=== PATIENT | male | born 1950 | race Two or more races ===

== ENCOUNTER 2022-09-08 12:04 | Inpatient (IN) | payer BC, OTHER ==
[~2022-09-08] VITALS: Ht 165.1 cm; Wt 118.0 kg
[2022-09-08] MEDS ORDERED: methylPREDNISolone SOD SUCC 125 MG/2 ML VL IV ONE (12:15)
[2022-09-08 12:53] LABS: Basophils # (auto) 0 10 ^3/uL (0-0.2); Basophils % (auto) 0.6 % (0.0-2.0); Eosinophils # (auto) 0.1 10 ^3/uL (0-0.8); Eosinophils % (auto) 1.9 % (0.0-7.0); Hematocrit 31.1 % (41.0-53.0); Lymphocytes # (auto) 1.2 10 ^3/uL (0.4-5.4); Lymphocytes % (auto) 24.6 % (10.0-50.0); Mean Corpuscular Hgb Conc. 35.2 g/dL (32.0-36.0); Mean Corpuscular Volume 90.7 fL (80.0-100.0); Monocytes # (auto) 0.5 10 ^3/uL (0-1.3); Monocytes % (auto) 10.8 % (0.0-12.0); Neutrophils % (auto) 62.1 % (37.0-80.0); Nucleated Red Blood Cells % 0.1 %; Red Blood Cells 3.43 10^6/uL (4.5-5.90); Red Cell Distribution Width 12.2 % (11.8-14.3); White Blood Cell 4.8 10^3/uL (4.4-10.8)
[2022-09-08 13:14] LABS: Potassium 3.7 mmol/L (3.5-5.1)
[2022-09-08 13:33] LABS: Albumin 3.7 g/dL (3.4-5.0); BUN/Creatinine Ratio 9.4; Calcium 8.7 mg/dL (8.5-10.1); Magnesium 1.6 mg/dL (1.6-2.6); Total Protein 6.6 g/dL (6.4-8.2)
[2022-09-08] MEDS ORDERED: AZITHROMYCIN 500MG/ 250ML 250 ML IV ONE (15:45)
[2022-09-08] MEDS ORDERED: IOHEXOL 350 MG/ML 100ML IJ ONE (15:56)
[2022-09-08 18:35] LABS: Urine Bacteria NONE SEEN /hpf (None Seen); Urine Blood Negative /uL (Negative); Urine Specific Gravity 1.011 (1.001-1.035); Urine WBC <1 /hpf (0 - 3)
[2022-09-08] MEDS ORDERED: HYDROcodone-ACET 5/325MG TAB PO PRN (20:45)
[2022-09-08] MEDS ORDERED: DOCUSATE SOD 100 MG CAP PO PRN (20:45)
[2022-09-08] MEDS ORDERED: MORPHINE SULFATE INJ 2 MG/ml SYRG IV PRN (20:45)
[2022-09-08] MEDS ORDERED: ACETAMINOPHEN 325 MG TAB PO PRN (20:45)
[2022-09-08] MEDS ORDERED: ONDANSETRON HCL 4 MG/2 ML VIAL IV PRN (20:45)
[2022-09-08] MEDS: SODIUM CHLORIDE 0.9% 1,000 ML IV SCH (21:33)
[2022-09-09 07:07] LABS: BUN/Creatinine Ratio 15.2; Calcium 9.1 mg/dL (8.5-10.1); Potassium 3.5 mmol/L (3.5-5.1)
[2022-09-09] MEDS ORDERED: HEPARIN DRIP/D5W 100UNITS/ML 250 ML IV SCH (07:45)
[2022-09-09] MEDS ORDERED: HEPARIN SODIUM (PORCINE) 5000 UNITS/ML 1ML VIAL IV ONE (07:45)
[2022-09-09 08:08] LABS: Basophils # (auto) 0 10 ^3/uL (0-0.2); Basophils % (auto) 0.1 % (0.0-2.0); Eosinophils # (auto) 0 10 ^3/uL (0-0.8); Hematocrit 32.5 % (41.0-53.0); Hemoglobin 11.8 g/dL (13.5-17.5); Lymphocytes # (auto) 0.6 10 ^3/uL (0.4-5.4); Lymphocytes % (auto) 12.5 % (10.0-50.0); Mean Corpuscular Hemoglobin 32.7 pg (28.0-32.0); Mean Corpuscular Hgb Conc. 36.4 g/dL (32.0-36.0); Mean Corpuscular Volume 89.8 fL (80.0-100.0); Monocytes # (auto) 0.3 10 ^3/uL (0-1.3); Monocytes % (auto) 5.5 % (0.0-12.0); Neutrophils # (auto) 3.9 10 ^3/uL (1.6-8.6); Neutrophils % (auto) 81.9 % (37.0-80.0); Nucleated Red Blood Cells % 0.1 %; Red Blood Cells 3.62 10^6/uL (4.5-5.90); Red Cell Distribution Width 12.1 % (11.8-14.3); White Blood Cell 4.7 10^3/uL (4.4-10.8)
[2022-09-09 08:23] LABS: INR 1.05 (0.9-1.15); Partial Thromboplastin Time 26.6 sec (24.6-33.4)
[2022-09-09] MEDS ORDERED: ENOXAPARIN SOD 40 MG/0.4 ML SYRINGE SC SCH (10:00)
[2022-09-09] MEDS ORDERED: DexAMETHasone SOD PHOS 10MG/1ML VIAL INJ IV SCH (10:00)
[2022-09-09] MEDS: SODIUM CHLORIDE 0.9% 1,000 ML IV SCH (14:39)
[2022-09-09] MEDS ORDERED: REMDESIVIR PER PHARMACY 0 ML IV SCH (15:15)
[2022-09-09] MEDS ORDERED: REMDESIVIR 200 MG in NS 210ml LOADING DOSE ADULT IV ONE (17:00)
[2022-09-10] MEDS: LORazepam 0.5 MG TAB PO PRN ×2 (05:26→21:47)
[2022-09-10 05:51] LABS: Basophils # (auto) 0 10 ^3/uL (0-0.2); Basophils % (auto) 0.8 % (0.0-2.0); Eosinophils # (auto) 0.1 10 ^3/uL (0-0.8); Eosinophils % (auto) 1.2 % (0.0-7.0); Hematocrit 30.7 % (41.0-53.0); Lymphocytes # (auto) 1.4 10 ^3/uL (0.4-5.4); Lymphocytes % (auto) 25.4 % (10.0-50.0); Mean Corpuscular Hemoglobin 32.6 pg (28.0-32.0); Mean Corpuscular Hgb Conc. 35.8 g/dL (32.0-36.0); Mean Corpuscular Volume 90.8 fL (80.0-100.0); Monocytes # (auto) 0.6 10 ^3/uL (0-1.3); Monocytes % (auto) 9.9 % (0.0-12.0); Neutrophils # (auto) 3.5 10 ^3/uL (1.6-8.6); Neutrophils % (auto) 62.7 % (37.0-80.0); Red Blood Cells 3.38 10^6/uL (4.5-5.90); Red Cell Distribution Width 12.4 % (11.8-14.3); White Blood Cell 5.6 10^3/uL (4.4-10.8)
[2022-09-10 06:06] LABS: Potassium 3.5 mmol/L (3.5-5.1)
[2022-09-10 06:08] LABS: % Iron Saturation 19.5 % (20-55)
[2022-09-10 06:13] LABS: Albumin 3.1 g/dL (3.4-5.0); BUN/Creatinine Ratio 18.1; Bilirubin, Total 0.5 mg/dL (0.2-1.0); Calcium 8.4 mg/dL (8.5-10.1); Total Protein 6.1 g/dL (6.4-8.2)
[2022-09-10] MEDS ORDERED: ATENOLOL 50 MG TAB PO ONE (11:00)
[2022-09-10] MEDS ORDERED: ENOXAPARIN SOD 40 MG/0.4 ML SYRINGE SC ONE (11:00)
[2022-09-10] MEDS ORDERED: ALBUTEROL SULF HFA 90MCG INH 200DOSE IN PRN (11:15)
[2022-09-10] MEDS ORDERED: predniSONE 20 MG TAB PO ONE (11:15)
[2022-09-10 11:24] VITALS: BP 132/75
[2022-09-10] MEDS: ALBUTEROL SULF HFA 90MCG INH 200DOSE IN SCH ×3 (12:00→21:01)
[2022-09-10] MEDS: REMDESIVIR 100mg 100 MG in SODIUM CHL 0.9% 230 ML IV SCH (15:29)
[2022-09-10 17:51] VITALS: BP 163/88
[2022-09-10] MEDS ORDERED: ATOR10TA52 PO (19:11)
[2022-09-10] MEDS ORDERED: HYDR25TA5 PO (19:11)
[2022-09-10] MEDS ORDERED: ATEN100T PO (19:11)
[2022-09-10] MEDS ORDERED: TAMS0.4C36 PO (19:11)
[2022-09-10] MEDS ORDERED: BENA20TA14 PO (19:11)
[2022-09-10] MEDS ORDERED: FERR1TAB8 PO (19:11)
[2022-09-10] MEDS ORDERED: ALBU108A5 PO (19:11)
[2022-09-10] MEDS: ENOXAPARIN SOD 40 MG/0.4 ML SYRINGE SC SCH (21:47)
[2022-09-10 22:11] VITALS: BP 142/68
[2022-09-11 04:45] VITALS: BP 159/69
[2022-09-11] MEDS: ALBUTEROL SULF HFA 90MCG INH 200DOSE IN SCH ×2 (06:23→10:51)
[2022-09-11 06:48] LABS: Basophils # (auto) 0 10 ^3/uL (0-0.2); Basophils % (auto) 0.6 % (0.0-2.0); Eosinophils # (auto) 0 10 ^3/uL (0-0.8); Eosinophils % (auto) 0.5 % (0.0-7.0); Hematocrit 33.6 % (41.0-53.0); Hemoglobin 11.8 g/dL (13.5-17.5); Lymphocytes # (auto) 1.6 10 ^3/uL (0.4-5.4); Lymphocytes % (auto) 23.2 % (10.0-50.0); Mean Corpuscular Hemoglobin 32.6 pg (28.0-32.0); Mean Corpuscular Hgb Conc. 35.2 g/dL (32.0-36.0); Mean Corpuscular Volume 92.8 fL (80.0-100.0); Monocytes # (auto) 0.5 10 ^3/uL (0-1.3); Monocytes % (auto) 7.9 % (0.0-12.0); Neutrophils # (auto) 4.6 10 ^3/uL (1.6-8.6); Neutrophils % (auto) 67.8 % (37.0-80.0); Nucleated Red Blood Cells % 0.1 %; Red Blood Cells 3.62 10^6/uL (4.5-5.90); Red Cell Distribution Width 12.4 % (11.8-14.3); White Blood Cell 6.7 10^3/uL (4.4-10.8)
[2022-09-11 07:26] LABS: Potassium 3.9 mmol/L (3.5-5.1)
[2022-09-11 07:27] LABS: BUN/Creatinine Ratio 23.5; Calcium 8.9 mg/dL (8.5-10.1)
[2022-09-11 07:28] LABS: Albumin 3.3 g/dL (3.4-5.0); Bilirubin, Total 0.7 mg/dL (0.2-1.0); Total Protein 6.2 g/dL (6.4-8.2)
[2022-09-11 07:30] VITALS: BP 126/63
[2022-09-11 08:00] VITALS: BP 130/61
[2022-09-11] MEDS: ENOXAPARIN SOD 40 MG/0.4 ML SYRINGE SC SCH (09:05)
[2022-09-11] MEDS ORDERED: ATENOLOL 50 MG TAB PO SCH (10:00)
[2022-09-11] MEDS ORDERED: predniSONE 20 MG TAB PO SCH (10:00)
[2022-09-11 12:00] VITALS: BP 121/63
[2022-09-11 16:00] VITALS: BP 130/63
[2022-09-11] MEDS: REMDESIVIR 100mg 100 MG in SODIUM CHL 0.9% 230 ML IV SCH (16:40)
[2022-09-11 17:11] VITALS: BP 130/61
== END 2022-09-11 18:30 | disposition home or self-care (01) | DRG 177 ==
LOC: ER 12:04 → TELE 20:50 → TELE-WESTW 09-10 17:02 → WEST WING 09-11 01:26
PROVIDERS: ADMIT Hospitalist; ATTEND Student in an Organized Health Care Education/Training Program
PROC: 0W9B30Z Drainage of Left Pleural Cavity with Drainage Device, Percutaneous Approach (ICD-10-PCS; 2022-09-08)
PROC: 05HC33Z Insertion of Infusion Device into Left Basilic Vein, Percutaneous Approach (ICD-10-PCS; principal; 2022-09-09)
PROC: B54NZZA Ultrasonography of Left Upper Extremity Veins, Guidance (ICD-10-PCS; 2022-09-09)
PROC: XW033E5 Introduction of Remdesivir Anti-infective into Peripheral Vein, Percutaneous Approach, New Technology Group 5 (ICD-10-PCS; 2022-09-09)
DX: U07.1 COVID-19 (principal); J12.82 Pneumonia due to coronavirus disease 2019; J96.01 Acute respiratory failure with hypoxia; Z68.41 Body mass index [BMI] 40.0-44.9, adult; E22.2 Syndrome of inappropriate secretion of antidiuretic hormone; J45.901 Unspecified asthma with (acute) exacerbation; J93.11 Primary spontaneous pneumothorax; E66.9 Obesity, unspecified; D50.9 Iron deficiency anemia, unspecified; Z20.822 Contact with and (suspected) exposure to COVID-19; E78.5 Hyperlipidemia, unspecified; I10 Essential (primary) hypertension
CPT/HCPCS: 36415; 71045; 71046; 71275; 80048; 80053; 81001; 82607; 82728; 83540; 83550; 83735; 83880; 84484; 85025; 85379; 85610; 85730; 87426; 87804; 93005; 93970; 94640; 96365; 96375; G0378; J1100

== ENCOUNTER 2024-05-22 12:11 | Inpatient (IN) | payer BC, OTHER ==
[~2024-05-22] VITALS: Ht 165.1 cm; Wt 108.2 kg
[~2024-05-22 12:11] MED LIST: ALBU108A5 PO; ATEN100T PO; ATOR10TA52 PO; BENA-36 PO; FERR1TAB8 PO; HYDR25TA5 PO; TAMS0.4C39 PO
[2024-05-22] MEDS: IOHEXOL 350 MG/ML 100ML IJ ONE ×2 (12:52→13:26)
[2024-05-22 13:10] LABS: Basophils # (auto) 0.1 10 ^3/uL (0-0.2); Basophils % (auto) 1.2 % (0.0-2.0); Eosinophils # (auto) 0.1 10 ^3/uL (0-0.8); Eosinophils % (auto) 1.2 % (0.0-7.0); Hematocrit 32.3 % (41.0-53.0); Hemoglobin 11.4 g/dL (13.5-17.5); Lymphocytes # (auto) 1.3 10 ^3/uL (0.4-5.4); Mean Corpuscular Hemoglobin 33.7 pg (28.0-32.0); Mean Corpuscular Hgb Conc. 35.2 g/dL (32.0-36.0); Mean Corpuscular Volume 95.8 fL (80.0-100.0); Monocytes # (auto) 0.4 10 ^3/uL (0-1.3); Monocytes % (auto) 10.3 % (0.0-12.0); Neutrophils # (auto) 2.5 10 ^3/uL (1.6-8.6); Neutrophils % (auto) 57.3 % (37.0-80.0); Nucleated Red Blood Cells % 0.1 %; Platelet Count (auto) 223 10^3/uL (140-450); Red Blood Cells 3.38 10^6/uL (4.5-5.90); Red Cell Distribution Width 14.9 % (11.8-14.3); White Blood Cell 4.4 10^3/uL (4.4-10.8)
[2024-05-22 13:36] LABS: INR 1.09 (0.9-1.15); Partial Thromboplastin Time 26.3 SEC (24.5-34.5); Prothrombin Time 11.5 sec (9.3-11.8)
[2024-05-22 13:51] LABS: Alanine Aminotransferase 16 U/L (7-40); Albumin 3.9 g/dL (3.2-4.8); Alkaline Phosphatase 66 U/L (46-116); Anion Gap 6 (5-15); Aspartate Aminotransferase < 8 U/L (13-40); Bilirubin, Total 0.9 mg/dL (0.2-1.0); Blood Alcohol 3.1 mg/dL (<10); Blood Urea Nitrogen 14 mg/dL (9-23); Calcium 9.3 mg/dL (8.7-10.4); Carbon Dioxide 25 mmol/L (20-30); Chloride 100 mmol/L (98-107); Glucose 110 mg/dL (74-106); Magnesium 1.6 mg/dL (1.6-2.6); Potassium 4.1 mmol/L (3.5-5.1); Sodium 131 mmol/L (136-145); Total Protein 6.2 g/dL (5.7-8.2)
[2024-05-22 14:00] VITALS: PULSE 64; RESP 14; O2SAT 97
[2024-05-22] MEDS ORDERED: DOCUSATE SOD 100 MG CAP PO PRN (14:45)
[2024-05-22] MEDS ORDERED: HYDROcodone-ACET 5/325MG TAB PO PRN (14:45)
[2024-05-22] MEDS ORDERED: MORPHINE SULFATE INJ 2 MG/ml SYRG IV PRN (14:45)
[2024-05-22] MEDS ORDERED: hydrALAZINE HCL 20 MG/ML VL IV PRN (14:45)
[2024-05-22] MEDS ORDERED: NITROGLYCERIN 0.4 MG SL TAB SL PRN (14:45)
[2024-05-22] MEDS ORDERED: ONDANSETRON HCL 4 MG/2 ML VIAL IV PRN (14:45)
[2024-05-22] MEDS ORDERED: ACETAMINOPHEN 325 MG TAB PO PRN (14:45)
[2024-05-22] MEDS: FUROSEMIDE 40 MG/4 ML VIAL IV ONE (15:14)
[2024-05-22 20:00] VITALS: PULSE 60; RESP 14; O2SAT 97
[2024-05-22] MEDS: ATORVASTATIN 20 MG TAB PO SCH (21:49)
[2024-05-22] MEDS: SODIUM CHLOR 0.9% PF (SALINE LOCK) 10ML VIAL/SYR IV SCH (22:05)
[2024-05-22 22:32] VITALS: BP 138/64; PULSE 65; PULSE 68; RESP 16; TEMP 97.8; O2SAT 98
[2024-05-22 22:53] VITALS: BP 138/64; PULSE 65; RESP 16; TEMP 97.8; O2SAT 98
[2024-05-23] VITALS (9 sets, daily range): BP systolic 111–143; BP diastolic 53–73; PULSE 61–83; RESP 16–19; TEMP 97.5–98.5; O2SAT 95–98
[2024-05-23 07:31] LABS: Alanine Aminotransferase 17 U/L (7-40); Albumin 3.7 g/dL (3.2-4.8); Alkaline Phosphatase 63 U/L (46-116); Anion Gap 9 (5-15); Aspartate Aminotransferase 17 U/L (13-40); BUN/Creatinine Ratio 12.1 (10.0-20.0); Blood Urea Nitrogen 14 mg/dL (9-23); Calcium 9.5 mg/dL (8.7-10.4); Carbon Dioxide 24 mmol/L (20-30); Chloride 100 mmol/L (98-107); Glucose 92 mg/dL (74-106); Potassium 4.2 mmol/L (3.5-5.1); Sodium 133 mmol/L (136-145)
[2024-05-23 07:32] LABS: Bilirubin, Total 0.7 mg/dL (0.2-1.0)
[2024-05-23] MEDS: ASPirin 81 mg TAB PO SCH (09:37)
[2024-05-23] MEDS: FUROSEMIDE 40 MG/4 ML VIAL IV SCH (09:38)
[2024-05-23 09:58] LABS: Triglycerides 59 mg/dL (< 150)
[2024-05-23 09:59] LABS: LDL Cholesterol 87 mg/dL (< 100)
[2024-05-23 10:00] LABS: Cholesterol 145 mg/dL (< 200); HDL Cholesterol 41 mg/dL (40-59)
[2024-05-23 10:09] LABS: Eosinophils # (auto) 0.1 10 ^3/uL (0-0.8); Hematocrit 34.6 % (41.0-53.0); Hemoglobin 12.4 g/dL (13.5-17.5); Lymphocytes # (auto) 1.3 10 ^3/uL (0.4-5.4); Monocytes # (auto) 0.5 10 ^3/uL (0-1.3)
[2024-05-23 10:12] LABS: Basophils # (auto) 0.1 10 ^3/uL (0-0.2); Basophils % (auto) 1.3 % (0.0-2.0); Eosinophils % (auto) 1.7 % (0.0-7.0); Lymphocytes % (auto) 25.5 % (10.0-50.0); Mean Corpuscular Hemoglobin 34.6 pg (28.0-32.0); Mean Corpuscular Volume 96.3 fL (80.0-100.0); Monocytes % (auto) 9.9 % (0.0-12.0); Neutrophils # (auto) 3.1 10 ^3/uL (1.6-8.6); Neutrophils % (auto) 61.6 % (37.0-80.0); Nucleated Red Blood Cells % 0.1 %; Platelet Count (auto) 236 10^3/uL (140-450); Red Cell Distribution Width 14.4 % (11.8-14.3); White Blood Cell 5.1 10^3/uL (4.4-10.8)
[2024-05-23] MEDS: CLOPIDOGREL BISULFATE 75 MG TAB PO ONE (17:06)
[2024-05-23] MEDS: ATORVASTATIN 20 MG TAB PO SCH (21:58)
[2024-05-24] VITALS (10 sets, daily range): BP systolic 123–152; BP diastolic 51–78; PULSE 52–78; RESP 17–19; TEMP 97.6–98.5; O2SAT 95–100
[2024-05-24] MEDS: CLOPIDOGREL BISULFATE 75 MG TAB PO SCH (00:32)
[2024-05-24] MEDS: hydroCHLOROthiazide 25 MG TAB PO SCH (08:26)
[2024-05-24 08:52] LABS: Hepatitis B Surface Antigen Negative (Negative)
[2024-05-24 09:13] LABS: Hepatitis C Antibody Negative (Negative)
[2024-05-24] MEDS ORDERED: CLOPIDOGREL BISULFATE 75 MG TAB PO SCH (10:00)
[2024-05-24] MEDS ORDERED: CLOP75TA70 PO (10:58)
[2024-05-24] MEDS ORDERED: ASPI-325 PO (10:58)
[2024-05-24] MEDS: TAMSULOSIN HYDROCHLORIDE 0.4 MG CAP PO SCH (17:38)
[2024-05-24] MEDS: ATORVASTATIN 20 MG TAB PO SCH (21:35)
[2024-05-25] VITALS (7 sets, daily range): BP systolic 120–123; BP diastolic 63–67; PULSE 72–94; RESP 17; TEMP 97.8–97.9; O2SAT 95–100
== END 2024-05-25 11:40 | disposition home or self-care (01) | DRG 65 ==
LOC: ER 12:11 → TELE 14:51 → TELE-WESTW 22:27
PROVIDERS: ADMIT Nurse Practitioner Family; ATTEND Internal Medicine Geriatric Medicine
PROC: 5A09357 Assistance with Respiratory Ventilation, Less than 24 Consecutive Hours, Continuous Positive Airway Pressure (ICD-10-PCS; principal; 2024-05-24)
DX: I63.9 Cerebral infarction, unspecified (principal); E87.1 Hypo-osmolality and hyponatremia; G81.91 Hemiplegia, unspecified affecting right dominant side; E78.5 Hyperlipidemia, unspecified; I10 Essential (primary) hypertension; J45.909 Unspecified asthma, uncomplicated; M81.0 Age-related osteoporosis without current pathological fracture; G89.29 Other chronic pain; G47.30 Sleep apnea, unspecified; N40.0 Benign prostatic hyperplasia without lower urinary tract symptoms; E66.01 Morbid (severe) obesity due to excess calories; Z68.39 Body mass index [BMI] 39.0-39.9, adult; Z90.49 Acquired absence of other specified parts of digestive tract; Z79.02 Long term (current) use of antithrombotics/antiplatelets; Z79.899 Other long term (current) drug therapy
CPT/HCPCS: 36415; 70450; 70551; 71275; 80053; 80061; 80320; 83036; 83605; 83735; 83880; 84484; 85025; 85610; 85730; 86803; 87340; 93005; 93306; 93886; 94660; 96374; 97163; G0378

== ENCOUNTER 2024-07-12 14:53 | Inpatient (IN) | payer BC, MEDICAID ==
[~2024-07-12] VITALS: Ht 167.6 cm; Wt 117.4 kg
[~2024-07-12 14:53] MED LIST changes: +ASPI-325 PO; +CLOP75TA70 PO
--- NOTE | 2024-07-12 15:12 | ED.PDOC ---
General HPI Comments 74y M who presents to the ED for chief complaint of flank pain. Pt states he has been having bilateral flank pain for the past 3 days. Pt states the pain is constant,non-radiating, rating the pain 2/10, pressure like in nature, with no associated exacerbating or relieving factors. Pt has no associated symptoms but denies nausea, vomiting, fever, cough, chills, dysuria, chest pain or shortness of breath. Pt states "I have pain under my lungs." Pt otherwise denies any other symptoms at this time. Chief Complaint: Flank Pain Time Seen by MD: 15:11 Primary Care Provider: YAYO Alonso notes: Medications, Allergies Allergies: Coded Allergies: NO KNOWN ALLERGIES (Unverified , 09/08/22) Home Meds Active Scripts Clopidogrel Bisulfate (CLOPIDOGREL) 75 Mg Tab, 75 MG PO DAILY for 21 Days, #21 TAB Prov:CACHORRO ALCOCER MD 05/24/24 Aspirin (Aspirin Low Dose) 81 Mg Tab, 81 MG PO DAILY for 30 Days, #30 TAB 5 Refills Prov:CACHORRO ALCOCER MD 05/24/24 Reported Medications Atorvastatin Calcium (ATORVASTATIN CALCIUM) 10 Mg Tab, 1 TAB PO 09/10/22 Tamsulosin Hcl (Tamsulosin Hcl) 0.4 Mg Cap, 1 CAP PO DAILYPRN 09/10/22 Hctz (Hydrochlorothiazide) 25 Mg Tab, 1 TAB PO DAILYPRN 09/10/22 Benazepril Hcl (Benazepril Hcl) 20 Mg Tab, 1 TAB PO DAILYPRN 09/10/22 Ferrous Sulfate (Gnp Iron) 325 Mg Tab, 1 TAB PO TID 09/10/22 Albuterol Sulfate (Albuterol Sulfate Hfa) 108 Mcg/Act Aer, 2 PUFF PO PRN for wheezing 09/10/22 Atenolol (Atenolol) 100 Mg Tab, 1 TAB PO DAILYPRN 09/10/22 Information Source: Patient Mode of Arrival: Ambulatory Brought in by: self Past Medical History PAST MEDICAL HISTORY: Arthritis, Asthma, High Lipids, HTN Surgical History: Appendectomy, Hernia Repair Family History Family History: Reviewed,noncontributory to illness Social History Smoker: Non-Smoker Alcohol: Denies ETOH Use Drugs: Denies Drug Use Lives In: Home Constitutional: denies: chills, diaphoresis, fatigue, fever, malaise, sweats, weakness, others EENTM: denies: blurred vision, double vision, ear bleeding, ear discharge, ear drainage, ear pain, ear ringing, eye pain, eye redness, hearing loss, mouth pain, mouth swelling, nasal discharge, nose bleeding, nose congestion, nose pain, photophobia, tearing, throat pain, throat swelling, voice changes, others Respiratory: denies: cough, hemoptysis, orthopnea, SOB at rest, shortness of breath, SOB with excertion, stridor, wheezing, others Cardiovascular: denies: chest pain, dizzy spells, diaphoresis, Dyspnea on exertion, edema, irregular heart beat, left arm pain, lightheadedness, palpitations, PND, syncope, others Gastrointestinal: denies: abdomen distended, abdominal pain, blood streaked bowels, constipated, diarrhea, dysphagia, difficulty swallowing, hematemesis, melena, nausea, poor appetite, poor fluid intake, rectal bleeding, rectal pain, vomiting, others Genitourinary: reports: flank pain; denies: burning, dysuria, frequency, hematuria, incontinence, penile discharge, penile sore, pain, testicle pain, testicle swelling, urgency, others Neurological: denies: dizziness, fainting, headache, left sided numbness, left sided weakness, numbness, paresthesia, pre-existing deficit, right sided numbness, right sided weakness, seizure, speech problems, tingling, tremors, weakness, others Musculoskeletal: denies: back pain, gout, joint pain, joint swelling, muscle pain, muscle stiffness, neck pain, others Integumetry: denies: bruises, change in color, change in hair/nails, dryness, laceration, lesions, lumps, rash, wounds, others Allergic/Immunocompromised: denies: Difficulty Healing, Frequent Infections, Hives, Itching, others Hematologic/Lymphatic: denies: anemia, blood clots, easy bleeding, easy bruising, swollen glands, others Endocrine: denies: excessive hunger, excessive sweating, excessive thirst, excessive urination, flushing, intolerance to cold, intolerance to heat, unexplained weight gain, unexplained weight loss, others Psychiatric: denies: anxiety, bipolar disorder, depression, hopeless, panic disorder, schizophrenia, sleepless, suicidal, others All Other Systems: Reviewed and Negative Physical Exam General Appearance: Moderate Distress HEENT: Normal ENT Inspection, Pharynx Normal, TMs Normal Neck: Full Range of Motion, Non-Tender, Normal, Normal Inspection Respiratory: Chest Non-Tender, Lungs Clear, No Accessory Muscle Use, No Respiratory Distress, Normal Breath Sounds Cardiovascular: No Edema, No JVD, No Murmur, No Gallop, Normal Peripheral Pulses, Regular Rate/Rhythm Breast Exam: Deferred Gastrointestinal: No Organomegaly, Non Tender, No Pulsatile Mass, Normal Bowel Sounds, Soft Genitalia: Deferred Pelvic: Deferred Rectal: Deferred Extremities: No calf tenderness, Normal capillary refill, Normal inspection, Normal range of motion, Non-tender, Pedal edema Musculoskeletal : Apperance: Normal Neurologic: Alert, interior design faculty member II-XII nml as Tested, No Motor Deficits, Normal Affect, Normal Mood, No Sensory Deficits Cerebellar Function: Normal Reflexes: Normal Skin: Dry, Normal Color, Warm Peripheral Pulses: 3+ Radial (R), 3+ Radial (L) Lymphatic: No Adenopathy Was a procedure done? Was a procedure done?: No Differential Diagnosis Kidney stone (Female): Musculoskeletal pain, Urinary obstruction, Urolithiasis Kidney stone (Male): DJD, Cholangitis, Pancreatitis, Pyelonephritis, Strain, Urinary obstruction, Urolithiasis X-Ray, Labs, Meds, VS Vital Signs Date Time Temp Pulse Resp B/P (MAP) Pulse Ox O2 Delivery O2 Flow Rate FiO2 07/12/24 15:43 67 17 98 Room Air 07/12/24 15:43 67 17 136/69 (91) 98 07/12/24 15:04 97.8 86 18 136/94 (108) 97 Lab Test 07/12/24 15:27 Range/Units White Blood Count 6.0 4.4-10.8 10^3/uL Red Blood Count 3.85 L 4.5-5.90 10^6/uL Hemoglobin 13.0 L 13.5-17.5 g/dL Hematocrit 36.5 L 41.0-53.0 % Mean Corpuscular Volume 94.7 80.0-100.0 fL Mean Corpuscular Hemoglobin 33.6 H 28.0-32.0 pg Mean Corpuscular Hemoglobin Concent 35.5 32.0-36.0 g/dL Red Cell Distribution Width 12.7 11.8-14.3 % Platelet Count 254 140-450 10^3/uL Mean Platelet Volume 7.1 6.9-10.8 fL Neutrophils (%) (Auto) 68.0 37.0-80.0 % Lymphocytes (%) (Auto) 22.3 10.0-50.0 % Monocytes (%) (Auto) 8.5 0.0-12.0 % Eosinophils (%) (Auto) 0.3 0.0-7.0 % Basophils (%) (Auto) 0.9 0.0-2.0 % Neutrophils # (Auto) 4.1 1.6-8.6 10 ^3/uL Lymphocytes # (Auto) 1.3 0.4-5.4 10 ^3/uL Monocytes # (Auto) 0.5 0-1.3 10 ^3/uL Eosinophils # (Auto) 0 0-0.8 10 ^3/uL Basophils # (Auto) 0.1 0-0.2 10 ^3/uL Nucleated Red Blood Cells 0.1 % Sodium Level 128 L 136-145 mmol/L Potassium Level 4.0 3.5-5.1 mmol/L Chloride Level 97 L 98-107 mmol/L Carbon Dioxide Level 25 20-31 mmol/L Anion Gap 6 5-15 Blood Urea Nitrogen 12 9-23 mg/dL Creatinine 1.08 0.700-1.30 mg/dL Glomerular Filtration Rate Calc 72 >90 mL/min BUN/Creatinine Ratio 11.1 10.0-20.0 Serum Glucose 110 H 74-106 mg/dL Calcium Level 9.8 8.7-10.4 mg/dL B-Type Natriuretic Peptide 220.85 0-100 pg/mL Patient alert. Complaining of flank pain. Vitals stable. Answering all questions. Continues to have pain. Bilateral lower extremity swelling. Possible CHF. Possible lung pathology causing the pain. Explained to the patient. Sodium is low. BNP elevated. Time of 1ST Reevaluation: 15:40 Reevaluation 1ST: Unchanged Patient Education/Counseling: Diagnosis, Treatment Family Education/Counseling: No Family Present Departure 1 Departure Time of Disposition: 15:47 Impression: Primary Impression: CHF (congestive heart failure) Qualified Codes: I50.43 - Acute on chronic combined systolic (congestive) and diastolic (congestive) heart failure Additional Impression: Hyponatremia Disposition: ADMITTED INPATIENT Admit to: Med Surg Condition: Guarded Critical Care Note Critical Care Time?: No Stability Stability form required: No Heart Score Heart Score: Heart Score Response (Comments) Value History N/A 0 EKG N/A 0 Age N/A 0 Risk Factors N/A 0 Troponin N/A 0 Total 0 I personally scribed for KENNA BAIN MD ([email or web address]) on 07/12/24 at 15:12. Electronically submitted by Shavonne Vazquez ([facility] KENNA BAIN MD Jul 12, 2024 15:12
[2024-07-12 15:50] LABS: Basophils # (auto) 0.1 10 ^3/uL (0-0.2); Basophils % (auto) 0.9 % (0.0-2.0); Eosinophils # (auto) 0 10 ^3/uL (0-0.8); Eosinophils % (auto) 0.3 % (0.0-7.0); Hematocrit 36.5 % (41.0-53.0); Lymphocytes # (auto) 1.3 10 ^3/uL (0.4-5.4); Lymphocytes % (auto) 22.3 % (10.0-50.0); Mean Corpuscular Hemoglobin 33.6 pg (28.0-32.0); Mean Corpuscular Hgb Conc. 35.5 g/dL (32.0-36.0); Mean Corpuscular Volume 94.7 fL (80.0-100.0); Monocytes # (auto) 0.5 10 ^3/uL (0-1.3); Monocytes % (auto) 8.5 % (0.0-12.0); Neutrophils # (auto) 4.1 10 ^3/uL (1.6-8.6); Nucleated Red Blood Cells % 0.1 %; Platelet Count (auto) 254 10^3/uL (140-450); Red Blood Cells 3.85 10^6/uL (4.5-5.90); Red Cell Distribution Width 12.7 % (11.8-14.3)
[2024-07-12 15:52] LABS: Chloride 97 mmol/L (98-107); Sodium 128 mmol/L (136-145)
[2024-07-12 15:53] LABS: Anion Gap 6 (5-15); Calcium 9.8 mg/dL (8.7-10.4); Carbon Dioxide 25 mmol/L (20-31)
[2024-07-12 15:58] LABS: BUN/Creatinine Ratio 11.1 (10.0-20.0); Blood Urea Nitrogen 12 mg/dL (9-23); Glucose 110 mg/dL (74-106)
--- NOTE | 2024-07-12 16:01 | DVH ---
CHEST RADIOGRAPH Indication:SOB Technique: Single frontal view of the chest was obtained Comparison: CXRP on DOS: 09/10/22, CHEST PORTABLE on DOS: 09/10/22, CXR1 on DOS: 09/10/22 FINDINGS: Lines and Tubes: None Lungs: No focal consolidation. Bilateral lower lung zone linear densities. Pleura: No effusion. No pneumothorax. Cardiomediastinal contours: [id number] cardiomegaly Bones: No acute osseous abnormality. IMPRESSION: Bilateral lower lung zone linear atelectasis. Otherwise, no evidence for acute cardiopulmonary disea se.
[2024-07-12 17:27] LABS: Urine Bacteria None Seen /hpf (None Seen)
[2024-07-12 17:48] LABS: Urine Blood 1+ /uL (Negative); Urine Clarity Clear (Clear); Urine Color Yellow (Yellow); Urine Protein, UAD Negative (Negative); Urine Specific Gravity 1.018 (1.001-1.035); Urine Urobilinogen 2 mg/dL (Negative); Urine WBC 1 /hpf (0 - 3); Urine pH 6.5 (5.0-9.0)
[2024-07-12 18:01] VITALS: O2SAT 100
[2024-07-12] MEDS ORDERED: MORPHINE SULFATE INJ 2 MG/ml SYRG IV PRN ×2 (21:30)
[2024-07-12] MEDS ORDERED: ACETAMINOPHEN 325 MG TAB PO PRN (21:30)
[2024-07-12] MEDS ORDERED: ONDANSETRON HCL 4 MG/2 ML VIAL IV PRN (21:30)
[2024-07-12] MEDS ORDERED: NITROGLYCERIN 0.4 MG SL TAB SL PRN (21:30)
[2024-07-12] MEDS: FUROSEMIDE 40 MG/4 ML VIAL IV SCH (22:00)
[2024-07-12 22:02] LABS: Basophils # (auto) 0.1 10 ^3/uL (0-0.2); Basophils % (auto) 1.1 % (0.0-2.0); Eosinophils # (auto) 0.1 10 ^3/uL (0-0.8); Eosinophils % (auto) 0.8 % (0.0-7.0); Hematocrit 36.1 % (41.0-53.0); Hemoglobin 12.8 g/dL (13.5-17.5); Lymphocytes # (auto) 1.8 10 ^3/uL (0.4-5.4); Lymphocytes % (auto) 27.3 % (10.0-50.0); Mean Corpuscular Hemoglobin 33.5 pg (28.0-32.0); Mean Corpuscular Hgb Conc. 35.5 g/dL (32.0-36.0); Mean Corpuscular Volume 94.4 fL (80.0-100.0); Monocytes # (auto) 0.5 10 ^3/uL (0-1.3); Monocytes % (auto) 8.2 % (0.0-12.0); Neutrophils # (auto) 4.2 10 ^3/uL (1.6-8.6); Neutrophils % (auto) 62.6 % (37.0-80.0); Platelet Count (auto) 258 10^3/uL (140-450); Red Blood Cells 3.82 10^6/uL (4.5-5.90); Red Cell Distribution Width 12.5 % (11.8-14.3); White Blood Cell 6.7 10^3/uL (4.4-10.8)
[2024-07-12] MEDS: SODIUM CHLOR 0.9% PF (SALINE LOCK) 10ML VIAL/SYR IV SCH (22:07)
--- NOTE | 2024-07-12 22:15 | DVHHPRES ---
History of Present Illness Resident Creating Document: ANDREY LAMAS RESIDENT History of Present Illness NIXON LUNA is a 74 years old male with a PMH of HTN, HLD, BPH, arthritis presented to the ED with the chief complaints of back pain and flank pain since three days prior to admission. Patient reported he has been having pain for past 3 days which is nonradiating, 3/10, stabbing like without other associated symptoms. Patient reported he recently moved from [facility], after coming here he started having continuous runny nose without sneezing or other allergic symptoms. On my assessment patient denies nausea, vomiting, fever, chills, dysuria, and other associated symptoms. Past Medical History HTN, HLD, BPH, arthritis Past Surgical History Appendectomy, hernia repair Family History: None Past Social History Lives with daughter. Denies smoking, alcohol and other drug abuse Review of Systems Constitutional: No: Fever, Chills, Sweats, Weakness, Malaise, Other Eyes: No: Pain, Vision change, Conjunctivae inflammation, Eyelid inflammation, Other, Redness ENT: Nose discharge Respiratory: No: Cough, Dry, Shortness of breath, SOB with excertion, Wheezing, Hemoptysis, Pleuritic Pain, Sputum, Wheezing, Other Cardiovascular: Edema Gastrointestinal: No: Nausea, Vomiting, Abdominal Pain, Diarrhea, Constipation, Melena, Hematochezia, Other Genitourinary: No Dysuria, No Frequency, No Incontinence, No Hematuria, No Retention, No Other Musculoskeletal: back pain Skin: No: Rash, Lesions, Jaundice, Bruising, Other Neurological: No: Weakness, Numbness, Incoordination, Change in speech, Conf usion, Seizures, Other Allergies: Coded Allergies: NO KNOWN ALLERGIES (Unverified , 09/08/22) Medications Current Medications Medications Dose Ordered Sig/Kip Route Start Time Stop Time Status Last Admin Dose Admin Sodium Chloride 10 ml Q8HR IV 07/12/24 22:00 07/12/24 22:07 10 ML Acetaminophen 325 mg Q4HP PRN PO 07/12/24 21:30 Ondansetron HCl 4 mg Q4HP PRN IV 07/12/24 21:30 Morphine Sulfate 2 mg Q4HPRN PRN IV 07/12/24 21:30 Nitroglycerin 0.4 mg Q5MINP PRN SL 07/12/24 21:30 Morphine Sulfate 2 mg Q30M PRN IV 07/12/24 21:30 Aspirin 81 mg DAILY PO 07/13/24 10:00 Clopidogrel Bisulfate 75 mg DAILY PO 07/13/24 10:00 Tamsulosin HCl 0.4 mg DAILY PO 07/13/24 10:00 Atenolol 100 mg DAILY PO 07/13/24 10:00 Benazepril HCl 20 mg DAILY PO 07/13/24 10:00 Furosemide 40 mg DAILY IV 07/12/24 22:00 UNV Exam Vital Signs Vital Signs Date Time Temp Pulse Resp B/P (MAP) Pulse Ox O2 Delivery O2 Flow Rate FiO2 07/12/24 18:15 97.4 82 18 153/56 (88) 98 97.4 07/12/24 18:15 Room Air 07/12/24 18:01 0 21 Exam Pt is lying on bed General Appearance: Alert, Oriented X3, Cooperative, Not in acute distress HEENT: Atraumatic, Mucous membranes moist/pink Respiratory: Clear to auscultation, Normal air movement, No added sounds Cardiovascular: Regular rate, Normal S1, Normal S2, No murmurs Abdominal: Active bowel sounds, Soft, no distention, no tenderness Extremities:1+ BLE edema, Normal pulses, No tenderness/swelling MSK: Mid Back tenderness Skin: No Significant rash, except past surgical scars Neuro: Normal speech, sensorimotor deficits none Psych/Mental Status: Mental status NL, Mood NL Nurse was there as sharperone during examination Labs/Xrays Labs Test 07/12/24 21:47 07/12/24 15:47 07/12/24 15:27 Range/Units Urine Color Yellow Yellow Urine Clarity Clear Clear Urine pH 6.5 5.0-9.0 Urine Specific [place] 1.018 1.001-1.035 Urine Protein Negative Negative Urine Ketones Negative Negative Urine Blood 1+ H Negative /uL Urine Nitrite Negative Negative Urine Bilirubin Negative Negative Urine Urobilinogen 2 H Negative mg/dL Urine Leukocyte Esterase Negative Negative /uL Urine RBC 6 0 - 3 /hpf Urine WBC 1 0 - 3 /hpf Urine Squamous Epithelial Cells Few <5 /hpf Urine Bacteria None seen None Seen /hpf Urine Glucose Normal Normal mg/dL Eosinophils (%) (Auto) 0.3 0.0-7.0 % Eosinophils # (Auto) 0 0-0.8 10 ^3/uL Basophils # (Auto) 0.1 0-0.2 10 ^3/uL Nucleated Red Blood Cells 0.1 % B-Type Natriuretic Peptide 220.85 0-100 pg/mL Assessment/Plan Assessment/Plan # ? Acute vs chronic systolic vs diastolic CHF -elevated BNP -ordered echocardiogram -consult cardiology if needed -resumed home meds -currently on Lasix 40 mg # hyponatremia -sodium level 128 -monitor lab # Uncontrolled HTN -continuously monitor -resumed home meds # BPH -resume the tamsulosin Cardiac diet No Gi PPX Lovenox for now Reconcile home meds Goals of care discussed with the patient for more than 27 minutes: Full code status Case discussed with Dr. Fierro, patient and nurse Plan discussed with: Patient, Other (RN) My Orders Orders - ANDREY LAMAS RESIDENT Procedure Category Date Status Time Admit ADMIT 07/12/24 Transmitted 21:28 Allergies BETTYE 07/12/24 In Process 21:28 Code Status CODE 07/12/24 Transmitted 21:28 Sodium Chloride Lock PHA 07/12/24 In Process (Saline Lock Ns) 22:00 Acetaminophen Tablet PHA 07/12/24 In Process (Tylenol Tablet) 21:30 Ondansetron Hcl PHA 07/12/24 In Process (Zofran) 21:30 Complete Blood Count LAB 07/13/24 Verified 04:00 Comprehensive LAB 07/13/24 Verified Metabolic Panel 04:00 Cardiac DIET 07/13/24 Transmitted Diet-2gna,Lofat,Lochol Breakfast Echo 2d Mode Cardiac US 07/12/24 Logged DOP 21:28 Morphine Sulfate PHA 07/12/24 In Process Injection 21:30 Nitroglycerin PHA 07/12/24 In Process Sublingual (Ntrostat 21:30 Morphine Sulfate PHA 07/12/24 In Process Injection 21:30 Oxygen By Nasal RT 07/12/24 Transmitted Cannula 21:28 Stat Ekg For Chest BETTYE 07/12/24 In Process Pain 21:28 Notify Of Changes BETTYE 07/12/24 In Process From Base 21:28 Plastics Tooling Engineer For BETTYE 07/12/24 In Process 24 Hours 21:28 Emergency Dysrhythmia BETTYE 07/12/24 In Process Protocol 21:28 Rhythm Strips Once BETTYE 07/12/24 In Process Every Shift 21:28 Complete Blood Count LAB 07/12/24 In Process 21:28 Comprehensive LAB 07/12/24 In Process Metabolic Panel 21:28 Aspirin Enteric PHA 07/13/24 In Process Coated Tablet 10:00 Clopidogrel Bisulfate PHA 07/13/24 In Process (Plavix) 10:00 Tamsulosin PHA 07/13/24 In Process Hydrochloride (Flomax) 10:00 Atenolol Tablet PHA 07/13/24 In Process (Tenormin Tablet) 10:00 Benazepril Hcl Tablet PHA 07/13/24 In Process (Lotensin Tablet) 10:00 PTPTT LAB 07/13/24 Verified 04:00 Hemoglobin A1c LAB 07/12/24 In Process 21:57 Drug Screen LAB 07/12/24 In Process 21:57 Vitamin D, 25-Hydroxy LAB 07/12/24 In Process 21:57 Vitamin B12 LAB 07/12/24 In Process 21:57 Thyroid Stimulating LAB 07/12/24 In Process Hormone 21:57 Furosemide Injection PHA 07/12/24 Logged (Lasix Injection) 22:00 Date of Service: Jul 12, 2024 Billing Provider: JONNIE FIERRO MD Common Visit Codes: 57331-[id number] INP/OBS CARE (HIGH) Secondary Visit Codes: [id number]-[id number] CARE PLAN 30 MINUTES ANDREY LAMAS RESIDENT Jul 12, 2024 22:14 JONNIE FIERRO MD Jul 13, 2024 10:21
[2024-07-12 22:16] LABS: Alanine Aminotransferase 14 U/L (7-40); Albumin 4.3 g/dL (3.2-4.8); Alkaline Phosphatase 83 U/L (46-116); Aspartate Aminotransferase 12 U/L (13-40); BUN/Creatinine Ratio 16.1 (10.0-20.0); Bilirubin, Total 0.9 mg/dL (0.2-1.0); Blood Urea Nitrogen 18 mg/dL (9-23); Calcium 9.9 mg/dL (8.7-10.4); Carbon Dioxide 26 mmol/L (20-31); Glucose 123 mg/dL (74-106); Potassium 3.8 mmol/L (3.5-5.1); Sodium 129 mmol/L (136-145)
[2024-07-12 22:17] LABS: Total Protein 6.9 g/dL (5.7-8.2)
[2024-07-12 22:26] LABS: Amphetamine Screen, Urine Neg (NEGATIVE); Barbiturate Scree,Urine Neg (NEGATIVE); Benzodiazephine Screen, Urine Neg (NEGATIVE); Cannabinoid Screen, Urine Neg (NEGATIVE); Cocaine Screen, Urine Neg (NEGATIVE); Opiate Scree,Urine Neg (NEGATIVE); Phencyclidine Screen, Urine Neg (NEGATIVE)
[2024-07-12 22:42] LABS: Anion Gap 8 (5-15); Chloride 95 mmol/L (98-107)
[2024-07-13] VITALS (7 sets, daily range): BP systolic 92–141; BP diastolic 42–78; PULSE 38–107; RESP 18–19; TEMP 97.7–98.2; O2SAT 92–99
[2024-07-13] MEDS ORDERED: hydroCHLOROthiazide 25 MG TAB PO SCH (10:00)
[2024-07-13] MEDS: ATENOLOL 25 MG TAB PO SCH (10:00)
[2024-07-13] MEDS: BENAZEPRIL HCL 10 MG TAB PO SCH (10:11)
[2024-07-13] MEDS: ASPirin-EC 81 mg tab PO SCH (10:12)
[2024-07-13] MEDS: CLOPIDOGREL BISULFATE 75 MG TAB PO SCH (10:12)
[2024-07-13] MEDS: TAMSULOSIN HYDROCHLORIDE 0.4 MG CAP PO SCH (10:12)
[2024-07-13 11:06] LABS: Basophils # (auto) 0 10 ^3/uL (0-0.2); Basophils % (auto) 0.9 % (0.0-2.0); Eosinophils # (auto) 0 10 ^3/uL (0-0.8); Eosinophils % (auto) 0.9 % (0.0-7.0); Hematocrit 39.4 % (41.0-53.0); Hemoglobin 13.6 g/dL (13.5-17.5); Lymphocytes # (auto) 1.4 10 ^3/uL (0.4-5.4); Lymphocytes % (auto) 25.4 % (10.0-50.0); Mean Corpuscular Hgb Conc. 34.6 g/dL (32.0-36.0); Mean Corpuscular Volume 95.6 fL (80.0-100.0); Monocytes # (auto) 0.5 10 ^3/uL (0-1.3); Neutrophils # (auto) 3.4 10 ^3/uL (1.6-8.6); Neutrophils % (auto) 62.8 % (37.0-80.0); Platelet Count (auto) 252 10^3/uL (140-450); Red Blood Cells 4.12 10^6/uL (4.5-5.90); Red Cell Distribution Width 12.5 % (11.8-14.3); White Blood Cell 5.4 10^3/uL (4.4-10.8)
[2024-07-13] MEDS ORDERED: diphenhdrAMINE HCL 25 MG CAP PO PRN (11:15)
[2024-07-13 11:27] LABS: INR 1.08 (0.9-1.15); Partial Thromboplastin Time 26.1 SEC (24.5-34.5); Prothrombin Time 11.4 sec (9.3-11.8)
[2024-07-13 11:35] LABS: Alanine Aminotransferase 15 U/L (7-40); Albumin 4.6 g/dL (3.2-4.8); Alkaline Phosphatase 88 U/L (46-116); Anion Gap 7 (5-15); Aspartate Aminotransferase 12 U/L (13-40); BUN/Creatinine Ratio 13.1 (10.0-20.0); Blood Urea Nitrogen 14 mg/dL (9-23); Calcium 10.4 mg/dL (8.7-10.4); Carbon Dioxide 27 mmol/L (20-31); Chloride 93 mmol/L (98-107); Glucose 99 mg/dL (74-106); Potassium 4.2 mmol/L (3.5-5.1); Sodium 127 mmol/L (136-145); Total Protein 7.5 g/dL (5.7-8.2)
--- NOTE | 2024-07-13 12:18 | DVH ---
RENAL ULTRASOUND CLINICAL HISTORY: CKD TECHNIQUE: Multiple ultrasound images of the kidneys and bladder were obtained. COMPARISON: None FINDINGS: The right kidney measures 11 cm in length. The left kidney measures 11.7 cm. The kidneys appear echog enic which May relate to medical renal disease. There is no discrete renal lesion. There is no evide nce of nephrolithiasis or hydronephrosis. The bladder appears within normal limits with prevoid volume of 350 cc. IMPRESSION: 1. Echogenic appearance of the kidneys which May relate to medical renal disease. HS:Y
--- NOTE | 2024-07-13 12:45 | DVH ---
INDICATION: History of fall, back pain COMPARISON: None TECHNIQUE: 3 views of the thoracic spine were obtained. FINDINGS: The thoracic vertebral alignment is normal. Mild multilevel degenerative disc disease of the thoracic spine. No acute fracture, vertebral compression deformity or aggressive osseous lesions. The imaged thorax and abdomen are grossly unremarkable. IMPRESSION: No acute fracture.
--- NOTE | 2024-07-13 12:45 | DVH ---
INDICATION: History of trauma, back pain COMPARISON: None TECHNIQUE: 3 views of the lumbar spine were obtained. FINDINGS/IMPRESSION: Mild retrolisthesis of L3 on L4. Severe multilevel degenerative disc disease most prominent at L3-L4. No acute fracture, vertebral compression deformity or aggressive osseous lesions. The paravertebral soft tissues are grossly unremarkable.
[2024-07-13 17:53] LABS: COVID19 ANTIGEN SOFIA FIA NEGATIVE (NEGATIVE)
--- NOTE | 2024-07-13 19:38 | DVHPNRES ---
Progress Note Date Seen: Jul 13, 2024 Resident Creating Document: VAL MAYA SMITA Has the PT tested + for MRSA If YES, has PT been informed?: No Medical Necessity Reason Pt with a Central, PICC or Fol: No Subjective Review of Systems NIXON LUNA is a 74-year-old male with a PMH of HTN, HLD, BPH, and arthritis. He presented to the ED with the chief complaints of back pain and flank pain for three days prior to admission. The patient reported having pain for the past five days, which is non-radiating, 3/10 in severity, and stabbing in nature without other associated symptoms. The patient mentioned he recently moved from [facility] and started having a continuous runny nose without sneezing or other allergic symptoms. He also complained of dizziness during physical activity. On my assessment, the patient denies nausea, vomiting, fever, chills, dysuria, and other associated symptoms. Past Medical History: HTN, HLD, BPH, arthritis, CVA 2 months ago, asthma (controlled) Past Surgical History: Appendectomy, hernia repair Family History: Noncontributory Social History: Lives with daughter. Denies smoking, alcohol, and other drug abuse Home Medications: Aspirin, atorvastatin, benazepril, clopidogrel, ferrous sulfate, hydrochlorothiazide, tamsulosin, atenolol Allergic History: Noncontributory On physical examination, there was mild tenderness in the lumbar region. Lab studies were significant for hyponatremia at 128, otherwise within normal limits. Spinal X-ray showed mild multilevel degenerative disc disease of the thoracic spine, mild retrolisthesis of L3 on L4, severe multilevel degenerative disc disease most prominent at L3-L4, and no acute fracture, vertebral compression deformity, or aggressive osseous lesions. Patient seen and examined at the bedside. Patient is feeling better since admission but still complained of dizziness. Patient reports: No new complaints, Feels better Changes from previous H/P or p: Changes Objective vital signs Vital Sign Date Time Temp Pulse Resp B/P (MAP) Pulse Ox O2 Delivery O2 Flow Rate FiO2 07/13/24 17:00 98.2 59 19 115/49 (71) 99 98.2 07/13/24 08:00 Room Air* 0 21 Total Intake and Output 07/12/24 07/12/24 07/13/24 15:00 23:00 07:00 Intake Total 300 ml Output Total 250 ml Balance 50 ml medications Current Medications Medications Dose Ordered Sig/Kip Route Start Time Stop Time Status Last Admin Dose Admin Sodium Chloride 10 ml Q8HR IV 07/12/24 22:00 07/13/24 15:17 10 ML Acetaminophen 325 mg Q4HP PRN PO 07/12/24 21:30 Ondansetron HCl 4 mg Q4HP PRN IV 07/12/24 21:30 Morphine Sulfate 2 mg Q4HPRN PRN IV 07/12/24 21:30 Aspirin 81 mg DAILY PO 07/13/24 10:00 07/13/24 10:12 81 MG Clopidogrel Bisulfate 75 mg DAILY PO 07/13/24 10:00 07/13/24 10:12 75 MG Atenolol 100 mg DAILY PO 07/13/24 10:00 Benazepril HCl 20 mg DAILY PO 07/13/24 10:00 07/13/24 10:11 20 MG Examination General Appearance: Alert, Oriented X3, Cooperative, No acute distress HEENT: Atraumatic, PERRLA, EOMI, Mucous membrane moist/pink Respiratory: Clear to auscultation, Normal air movement Cardiovascular: Regular rate, Normal S1, Normal S2, No murmurs, no chest wall tenderness Abdominal: Normal bowel sounds, Soft, No tenderness, No hepatospenomegaly, No masses Spine: Mild tenderness at the lumbar spine area Skin: No rashes, No breakdown, No significant lesion laboratory and microbiology Laboratory Tests 07/13/24 10:48 Test 07/13/24 10:48 Range/Units Serum Glucose 99 74-106 mg/dL Labs and/or images reviewed: Labs reviewed by me, Image(s) reviewed by me Problem List/Assessment/Plan Problem List/Assessment/Plan Symptomatic moderate hyponatremia, hypotonic euvolemic Likely drug-induced, hydrochlorothiazide Stopped hydrochlorothiazide Normal saline at 100 mL/hour Check serum osmolarity Check urine osmolality, urine sodium and urine creatinine Allergic rhinitis Benadryl p.r.n. Degenerative disc disease of the thoracic spine and lumbar spine Spinal x-ray shows severe multilevel degenerative disc disease most prominent at L3-L4 Symptomatic treatment, follow up on outpatient basis Retrolisthesis of L3 on L4 Spinal x-ray finding Symptomatic uterine, follow up on outpatient basis Vitamin-D deficiency Supplemented Vitamin B12 deficiency Supplemented Hypertension Continue medication Hyperlipidemia Continue medication Hypertension Continue benazepril and atenolol Diet Cardiac DVT prophylaxis Lovenox Code status Full Code Case discussed with Dr. Fierro Plan discussed with: Patient, Other (RN) My Orders My Orders Orders - VAL MAYA Procedure Category Date Status Time Urine Sodium LAB 07/13/24 Logged 09:04 Lumbar Spine 3 View XY 07/13/24 Resulted 11:11 Spine Thoracic 2view XY 07/13/24 Resulted 11:11 Kidney US 07/13/24 Resulted 11:17 Urine LAB 07/13/24 Logged Protein/Creatinine 09:04 Date of Service: Jul 13, 2024 Billing Provider: JONNIE FIERRO MD Common Visit Codes: [id number] INP/OBS CARE(HIGH) VAL MAYA RESDIFERNANDO Jul 13, 2024 19:38 JONNIE FIERRO MD Jul 14, 2024 12:47
[2024-07-13] MEDS: SODIUM CHLORIDE 0.9% 1,000 ML IV ONE (19:45)
[2024-07-14] VITALS (9 sets, daily range): BP systolic 98–122; BP diastolic 41–62; PULSE 61–83; RESP 16–17; TEMP 98–99.1; O2SAT 94–98
[2024-07-14 06:51] LABS: Chloride 95 mmol/L (98-107); Potassium 3.8 mmol/L (3.5-5.1); Sodium 128 mmol/L (136-145)
[2024-07-14 06:52] LABS: Anion Gap 5 (5-15); Calcium 9.4 mg/dL (8.7-10.4); Carbon Dioxide 28 mmol/L (20-31)
[2024-07-14 06:57] LABS: BUN/Creatinine Ratio 17.7 (10.0-20.0); Blood Urea Nitrogen 23 mg/dL (9-23); Glucose 107 mg/dL (74-106)
[2024-07-14] MEDS: SODIUM CHLORIDE 0.9% 500 ML IV ONE (14:30)
[2024-07-14 14:31] LABS: Creatinine, Urine 114.36 mg/dL (30.0-125.0); Urine Protein/Creatinine Ratio 0.09
[2024-07-14 14:53] LABS: Chloride 95 mmol/L (98-107); Potassium 4.2 mmol/L (3.5-5.1); Sodium 128 mmol/L (136-145)
[2024-07-14 14:54] LABS: Anion Gap 5 (5-15); Carbon Dioxide 28 mmol/L (20-31)
[2024-07-14 14:59] LABS: BUN/Creatinine Ratio 16.9 (10.0-20.0); Blood Urea Nitrogen 23 mg/dL (9-23); Glucose 103 mg/dL (74-106)
--- NOTE | 2024-07-14 15:27 | DVHDSRES ---
Discharge Summary Date of Admission Resident Creating Document: TALIA MCHUGH RESIDENT Jul 12, 2024 at 21:28 Date of Discharge: Jul 14, 2024 Labs/Diagnostic Data: Laboratory Results Test 07/14/24 14:32 07/14/24 14:05 07/13/24 15:20 07/13/24 10:48 Sodium Level 128 mmol/L (136-145) Potassium Level 4.2 mmol/L (3.5-5.1) Chloride Level 95 mmol/L (98-107) Carbon Dioxide Level 28 mmol/L (20-31) Anion Gap 5 (5-15) Blood Urea Nitrogen 23 mg/dL (9-23) Creatinine 1.36 mg/dL (0.700-1.30) Glomerular Filtration Rate Calc 54 mL/min (>90) BUN/Creatinine Ratio 16.9 (10.0-20.0) Serum Glucose 103 mg/dL (74-106) Calcium Level 10.0 mg/dL (8.7-10.4) Urine Osmolality 488 mOsm/kg Urine Creatinine 114.36 mg/dL (30.0-125.0) Urine Protein/Creatinine Ratio 0.09 Urine Sodium 45 mmol/L (40-220) Urine Total Protein 10.0 mg/dL (1-14) SARS-CoV-2 Antigen (Rapid) Negative (NEGATIVE) White Blood Count 5.4 10^3/uL (4.4-10.8) Red Blood Count 4.12 10^6/uL (4.5-5.90) Hemoglobin 13.6 g/dL (13.5-17.5) Hematocrit 39.4 % (41.0-53.0) Mean Corpuscular Volume 95.6 fL (80.0-100.0) Mean Corpuscular Hemoglobin 33.0 pg (28.0-32.0) Mean Corpuscular Hemoglobin Concent 34.6 g/dL (32.0-36.0) Red Cell Distribution Width 12.5 % (11.8-14.3) Platelet Count 252 10^3/uL (140-450) Mean Platelet Volume 7.0 fL (6.9-10.8) Neutrophils (%) (Auto) 62.8 % (37.0-80.0) Lymphocytes (%) (Auto) 25.4 % (10.0-50.0) Monocytes (%) (Auto) 10.0 % (0.0-12.0) Eosinophils (%) (Auto) 0.9 % (0.0-7.0) Basophils (%) (Auto) 0.9 % (0.0-2.0) Neutrophils # (Auto) 3.4 10 ^3/uL (1.6-8.6) Lymphocytes # (Auto) 1.4 10 ^3/uL (0.4-5.4) Monocytes # (Auto) 0.5 10 ^3/uL (0-1.3) Eosinophils # (Auto) 0 10 ^3/uL (0-0.8) Basophils # (Auto) 0 10 ^3/uL (0-0.2) Nucleated Red Blood Cells 0.0 % Prothrombin Time 11.4 sec (9.3-11.8) Prothrombin Time INR 1.08 (0.9-1.15) Activated Partial Thromboplast Time 26.1 SEC (24.5-34.5) Serum Osmolality 272 mOsm/kg (278-298) Total Bilirubin 1.0 mg/dL (0.2-1.0) Aspartate Amino Transferase (AST) 12 U/L (13-40) Alanine Aminotransferase (ALT) 15 U/L (7-40) Alkaline Phosphatase 88 U/L (46-116) Total Protein 7.5 g/dL (5.7-8.2) Albumin 4.6 g/dL (3.2-4.8) Vitamin B12 Level 401 pg/mL (211-911) Vitamin D 25-Hydroxy 40.2 ng/mL (30.0-100) Test 07/12/24 21:47 07/12/24 15:47 07/12/24 15:27 Hemoglobin A1c 5.0 % A1C (<5.7) Thyroid Stimulating Hormone (TSH) 2.54 uIU/mL (0.55-4.78) Urine Color Yellow (Yellow) Urine Clarity Clear (Clear) Urine pH 6.5 (5.0-9.0) Urine Specific [place] 1.018 (1.001-1.035) Urine Protein Negative (Negative) Urine Ketones Negative (Negative) Urine Blood 1+ /uL (Negative) Urine Nitrite Negative (Negative) Urine Bilirubin Negative (Negative) Urine Urobilinogen 2 mg/dL (Negative) Urine Leukocyte Esterase Negative /uL (Negative) Urine RBC 6 /hpf (0 - 3) Urine WBC 1 /hpf (0 - 3) Urine Squamous Epithelial Cells Few /hpf (<5) Urine Bacteria None seen /hpf (None Seen) Urine Glucose Normal mg/dL (Normal) Urine Opiates Screen Neg (NEGATIVE) Urine Fentanyl Screen Neg (NEGATIVE) Urine Barbiturates Screen Neg (NEGATIVE) Urine Phencyclidine Screen Neg (NEGATIVE) Urine Amphetamines Screen Neg (NEGATIVE) Urine Benzodiazepines Screen Neg (NEGATIVE) Urine Cocaine Screen Neg (NEGATIVE) Urine Cannabinoids Screen Neg (NEGATIVE) B-Type Natriuretic Peptide 220.85 pg/mL (0-100) Other Laboratory Tests 07/14/24 14:32 07/13/24 10:48 Brief Hx & Hospital Course: 74-year-old woman with past medical history of hypertension, hyperlipidemia, BPH and arthritis presented with chief complaint of back pain and flank pain for last three days prior to admission. The patient mentioned he recently moved from [facility] and started having a continuous runny nose without sneezing or other allergic symptoms. He also complained of dizziness during physical activity. Patient's labs showed hyponatremia, and patient takes hydrochlorothiazide, which was discontinued. Serum osmolarity, urine osmolality, urine sodium and urine creatinine altered. Patient was started on IV fluids. Spinal x-ray shows severe multilevel degenerative disc disease most prominent at L3-L4. Retrolisthesis of L3 on L4 was seen on imaging. Patient was supplemented For vitamin-D deficiency and vitamin-B deficiency. Medications were continued for hypertension, hyperlipidemi. Later in the hospital patient's blood pressure was do not normal and patient had heart rate in 50s but was not symptomatic. Patient mentioned improvement in symptoms. Atenolol was put on hold for now heart rate. Time of discharge, patient had stable vitals, no new complaint. Discharge plan was discussed with the patient and patient advised to follow up with [facility] within one week. Patient's home medication atenolol and hydrochlorothiazide for put on hold till further evaluation on an outpatient basis. Examination General Appearance: Alert, Oriented X3, Cooperative, No acute distress HEENT: EOMI Respiratory: Clear to auscultation, Normal air movement Cardiovascular: Regular rate, Normal S1, Normal S2 Abdominal: Normal bowel sounds Extremities: No cyanosis, No edema, Normal pulses, No tenderness/swelling Skin: No rashes, No breakdown Neuro: Normal speech and tone Condition at Discharge: Stable Final Diagnosis/Problems List ?Symptomatic hyponatremia, hypotonic Likely drug-induced, hydrochlorothiazide. ? 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 Patient was counseled about treatment plan, medications, possible side effects, patientverbalized understanding. All questions were answered to the best of my ability. This discharge took greater then 30 minutes in planning, reviewing documentation, counseling the patient, and discussing with other team members." ASSESSMENT ASSESSMENT Assessment hyponatremia mechanical fall rhinitis Date of Service: Jul 14, 2024 Billing Provider: SUNG MO DO Common Visit Codes: 59062-ULC/OBS DISCH DAY >30min TALIA MCHUGH RESIDENT Jul 14, 2024 15:27 SUNG MO DO Jul 23, 2024 07:20
[2024-07-16 08:59] LABS: Hepatitis B Surface Antibody Negative (Negative)
[2024-07-16 09:32] LABS: Hepatitis C Antibody Negative (Negative)
== END 2024-07-14 18:15 | disposition home or self-care (01) | DRG 640 ==
LOC: ER 15:06 → OVERFLOW 21:28 → ER 21:32 → EAST 07-13 03:19
PROVIDERS: ADMIT Internal Medicine; ATTEND Internal Medicine
DX: E87.1 Hypo-osmolality and hyponatremia (principal); I50.43 Acute on chronic combined systolic (congestive) and diastolic (congestive) heart failure; I11.0 Hypertensive heart disease with heart failure; N40.0 Benign prostatic hyperplasia without lower urinary tract symptoms; E78.5 Hyperlipidemia, unspecified; Z20.822 Contact with and (suspected) exposure to COVID-19; T50.2X5A Adverse effect of carbonic-anhydrase inhibitors, benzothiadiazides and other diuretics, initial encounter; J45.909 Unspecified asthma, uncomplicated; E53.8 Deficiency of other specified B group vitamins; E55.9 Vitamin D deficiency, unspecified; M51.34 Other intervertebral disc degeneration, thoracic region; M51.369 Other intervertebral disc degeneration, lumbar region without mention of lumbar back pain or lower extremity pain; Z79.899 Other long term (current) drug therapy; Z86.73 Personal history of transient ischemic attack (TIA), and cerebral infarction without residual deficits; Y93.89 Activity, other specified; Y92.89 Other specified places as the place of occurrence of the external cause; Y99.8 Other external cause status
CPT/HCPCS: 36415; 71045; 72070; 72100; 76775; 80048; 80053; 80307; 81001; 82306; 82570; 82607; 83036; 83880; 83930; 83935; 84156; 84300; 84443; 85025; 85610; 85730; 86706; 86803; 87426; 96360; 97163; G0378